=== PATIENT | male | born 1995 | race Asian ===

== ENCOUNTER → 2024-10-16 | Outpatient (CLI) | payer SELFPAY ==
[2024-10-16 14:34] LABS: Hepatitis B Surface Ab Reactive (Immune) (Immune)
== END | disposition home or self-care (01) ==
PROVIDERS: PCP Nurse Practitioner Family; Referring Provider Nurse Practitioner Family; Visit Provider Nurse Practitioner Family
DX: Z23 Encounter for immunization (principal)
CPT/HCPCS: 36415; 86706